=== PATIENT | male | born 1985 | race American Indian/Alaskan Native ===

== ENCOUNTER 2017-08-21 08:11 | Emergency (ER) | payer OTHER ==
[2017-08-21] MEDS ORDERED: ceFAZolin 1,000 MG VIAL IVPUSH ONE (08:24)
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
[2017-08-21] MEDS: Metoclopramide 10 MG/2 ML SDV IVPUSH ONE (08:37)
[2017-08-21] MEDS: HYDROmorphone 0.5 MG/0.5 ML SYRINGE IVPUSH ONE (08:38)
[2017-08-21] MEDS: ceFAZolin 2 GM in Premix Bag 1 BAG IV ONE (08:44)
[2017-08-21] MEDS: Dextrose 5%-0.9% NaCl 1,000 ML IV SCH (08:44)
[2017-08-21] MEDS: Lidocaine 1% 10 ML MDV INJECT ONE (08:46)
--- NOTE | 2017-08-21 09:16 | CR ---
Left forearm: Two views of the left forearm were obtained. Comparison: No previous study. Soft tissue swelling and soft tissue air is seen within the proximal forearm. No radiopaque foreign object is seen. No fracture or other bony abnormality is seen. Impression: 1. Soft tissue injury. No acute bony abnormality is identified. Diagnostic code #2
[2017-08-21] MEDS: ceFAZolin 1 GM in Premix Bag 1 BAG IV STA (09:37)
[2017-08-21] MEDS: Acetaminophen 325 MG Tab PO ONE (13:07)
== END 2017-08-21 13:10 | disposition home or self-care (01) ==
LOC: JD.ED 08:11
DX: S51.812A Laceration without foreign body of left forearm, initial encounter (principal); Y04.0XXA Assault by unarmed brawl or fight, initial encounter; F10.129 Alcohol abuse with intoxication, unspecified; Y90.0 Blood alcohol level of less than 20 mg/100 ml
CPT/HCPCS: 12002; 36415; 73090-26-LT; 73090-LT; 80053; 83690; 83735; 85007; 85027; 96361; 96365; 96375; 99285-25; A9270-GY; G0480; J0690; J1170; J2765; J7042

== ENCOUNTER 2019-06-22 16:56 | Emergency (ER) | payer SELFPAY ==
[2019-06-22] MEDS ORDERED: Metoclopramide 10 MG/2 ML SDV IVPUSH ONE (16:59)
[2019-06-22] MEDS ORDERED: Dextrose 5%-0.9% NaCl 1,000 ML IV SCH (17:00)
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
--- NOTE | 2019-06-22 17:33 | CR ---
Chest: Portable view of the chest was obtained. Comparison: No previous chest imaging. Heart is slightly prominent but felt to be accentuated from poor inspiratory effort as well as portable technique. Lung markings are increased most likely relating to poor inspiratory effort. Lungs otherwise are clear. Scoliosis is noted within the spine. Impression: 1. Poor inspiratory study which is felt to cause findings as noted above. 2. Nothing acute is suspected on portable chest x-ray. Diagnostic code #2 This report was dictated in MDT
[2019-06-22] MEDS ORDERED: diphenhydrAMINE 50 MG/ML SDV ONE (18:39)
[2019-06-22] MEDS ORDERED: diphenhydrAMINE 50 MG/ML SDV IVPUSH ONE (18:42)
== END 2019-06-22 20:55 | disposition home or self-care (01) ==
LOC: JD.ED 16:56
DX: T40.2X1A Poisoning by other opioids, accidental (unintentional), initial encounter (principal); T42.4X1A Poisoning by benzodiazepines, accidental (unintentional), initial encounter; B19.20 Unspecified viral hepatitis C without hepatic coma
CPT/HCPCS: 36415; 71045; 80053; 80307; 86317; 86803; 87449; 96361; 96374; 96375; 99285; J1200; J2765; J7042; G0433

== ENCOUNTER 2022-11-03 14:58 | Emergency (ER) | payer SELFPAY | END 2022-11-03 15:34 | disposition home or self-care (01) | LOC: JD.ED 14:58 | DX: T63.461A Toxic effect of venom of wasps, accidental (unintentional), initial encounter (principal) | CPT/HCPCS: 99282; 99283 ==